=== PATIENT | male | born 1970 | race Caucasian/White ===

== ENCOUNTER 2019-03-23 17:29 | Emergency (ER) | payer MEDICAID, SELFPAY ==
[2019-03-23] VITALS (9 sets, daily range): BP systolic 133–161; BP diastolic 80–103; PULSE 109–115; RESP 14–37; TEMP 36.6; O2SAT 97–100
--- NOTE | 2019-03-23 17:35 | W.ED.GENAD ---
Discharge Plan Disposition Patient Disposition: HOME Condition: Improving Discharge Details Chief Complaint: OD/Poison Clinical Impression: Opiate overdose Primary Care Provider: Kait Ponce ED Provider: Julian Masterson Home Meds and New Rx's Prescriptions: Continued naloxone [Narcan] 4 MG spray,non-aerosol 4 mg NS DIRECTED Qty: 2 RF: 0 prednisone 20 MG tablet 40 mg PO HS Qty: 6 RF: 0 diphenhydramine HCl 50 MG capsule 50 mg PO Q6H PRN (Reason: Itching) Qty: 15 RF: 0 epinephrine [EpiPen 2-Chivo] 0.3 MG/0.3 ML auto-injector 0.3 mg IJ DIRECTED PRNQty: 1 RF: 0 ranitidine HCl [Zantac] 150 MG tablet 150 mg PO BID Qty: 6 RF: 0 Discharge Instructions Additional Instructions: Please continue your efforts to avoid illicit drug use. Continue your regular medications. Return for any acute concern. Medical Decision Making 48-year-old male states he has a history of substance abuse, was recently able to wean off of opiates and has been clean for some months. Today he states he bought some heroin, snorted it and that the last thing he remembers. EMS was called for overdose, patient received Narcan and was revived. He arrives improved and without complaint. Patient slightly tachycardic initially and given fluid bolus. He seen by a onsite health coach in the emergency department. Observed. He is improved. Stable for discharge to home. HPI General Mode of arrival: EMS. Date/Time Provider Initiated Documentation: 03/23/19 17:31. Limitations to Documentation: no limitations. Information obtained by: patient and EMS. History of Present Illness 48 year old M presents to the emergency department with the chief complaint of Opiate overdose, described as moderate, Patient started experiencing this minute(s) No relieving factors improve symptom(s), No exacerbating factors reported . Patient notes no other symptoms.; denies chest pain and shortness of breath. Patient did receive the following treatments prior to arrival, none Related Data Home Medications Medication Instructions Recorded Confirmed diphenhydramine HCl 50 mg PO Q6H PRN #15 cap 02/28/18 epinephrine [EpiPen 2-Chivo] 0.3 mg IJ DIRECTED PRN #1 02/28/18 auto.injct prednisone 40 mg PO HS #6 tab 02/28/18 ranitidine HCl [Zantac] 150 mg PO BID #6 tab 02/28/18 naloxone [Narcan] 4 mg NS DIRECTED #2 spray 06/09/18 Previous Rx's Medication Instructions Recorded diphenhydramine HCl 50 mg PO Q6H PRN #15 cap 02/28/18 epinephrine [EpiPen 2-Chivo] 0.3 mg IJ DIRECTED PRN #1 02/28/18 auto.injct prednisone 40 mg PO HS #6 tab 02/28/18 ranitidine HCl [Zantac] 150 mg PO BID #6 tab 02/28/18 naloxone [Narcan] 4 mg NS DIRECTED #2 spray 06/09/18 Allergies Allergy/AdvReac Type Severity Reaction Status Date / Time naproxen [From Aleve] Allergy Severe Swelling/Ed Verified 02/28/18 06:35 maryann Review of Systems Review of Systems Denies chest pain, palpitations, shortness of breath. No active depression. States that he feels embarrassed. 6 systems reviewed and otherwise neg [facility] Medical History Depression History of incarceration Substance abuse Tobacco use disorder Surgical History Left wrist fusion rgt thumb first [facility] joint injection (02/11/16) Family History Mother No problems noted. Father Diabetes Essential hypertension Personal history of malignant neoplasm Stroke Sister No problems noted. Brother No problems noted. Grandfather Substance abuse Social History Smoking/Tobacco Use Status: Current every day Alcohol Intake: current Alcohol Intake frequency: 3 or more drinks per day Drug use: Occasionally Substance use type: former substance user, marijuana and heroin Details: Patient had been sober until today, he was a former heroin user. He still smokes marijuana Exam Narrative Exam Narrative: GEN: awake, alert, oriented 3. Pleasant, well groomed, interactive. HEAD: Normocephalic, atraumatic ENT: Mucous membranes moist, oropharynx unremarkable, External ear exam unremarkable EYES: PERRL, EOMI NECK: Full ROM, no MILA, no menigismus CHEST/RESP: Nontender, clear to auscultation bilateral, no wheeze/rhonchi/rales CARDIOVASCULAR: RRR, no murmur, rub melonie. 2+ Rad pulse bilateral ABDOMEN: Soft, nontender, no mass. +Bowel sounds EXT: Full ROM, no edema, no rash Neuro: Grossly normal neurologic exam, conversant, interactive. Psych: Speech fluent, thoughts congruent, affect normal
--- NOTE | 2019-03-23 17:38 | ED.GENADUL_ITS ---
Discharge Plan Disposition Patient Disposition: HOME Condition: Improving Discharge Details Chief Complaint: OD/Poison Clinical Impression: Opiate overdose Primary Care Provider: Kait Ponce ED Provider: Julian Masterson Home Meds and New Rx's Prescriptions: Continued naloxone [Narcan] 4 MG spray,non-aerosol 4 mg NS DIRECTED Qty: 2 RF: 0 prednisone 20 MG tablet 40 mg PO HS Qty: 6 RF: 0 diphenhydramine HCl 50 MG capsule 50 mg PO Q6H PRN (Reason: Itching) Qty: 15 RF: 0 epinephrine [EpiPen 2-Chivo] 0.3 MG/0.3 ML auto-injector 0.3 mg IJ DIRECTED PRNQty: 1 RF: 0 ranitidine HCl [Zantac] 150 MG tablet 150 mg PO BID Qty: 6 RF: 0 Discharge Instructions Additional Instructions: Please continue your efforts to avoid illicit drug use. Continue your regular medications. Return for any acute concern. Medical Decision Making 48-year-old male states he has a history of substance abuse, was recently able to wean off of opiates and has been clean for some months. Today he states he bought some heroin, snorted it and that the last thing he remembers. EMS was called for overdose, patient received Narcan and was revived. He arrives improved and without complaint. Patient slightly tachycardic initially and given fluid bolus. He seen by a recovery rn in the emergency department. Observed. He is improved. Stable for discharge to home. HPI General Mode of arrival: EMS . Date/Time Provider Initiated Documentation: 03/23/19 17:31 . Limitations to Documentation: no limitations . Information obtained by: patient and EMS . History of Present Illness 48 year old M presents to the emergency department with the chief complaint of Opiate overdose, described as moderate, Patient started experiencing this minute(s) No relieving factors improve symptom(s), No exacerbating factors reported . Patient notes no other symptoms.; denies chest pain and shortness of breath. Patient did receive the following treatments prior to arrival, none Related Data Home Medications Medication Instructions Recorded Confirmed diphenhydramine HCl 50 mg PO Q6H PRN #15 cap 02/28/18 epinephrine [EpiPen 2-Chivo] 0.3 mg IJ DIRECTED PRN #1 02/28/18 auto.injct prednisone 40 mg PO HS #6 tab 02/28/18 ranitidine HCl [Zantac] 150 mg PO BID #6 tab 02/28/18 naloxone [Narcan] 4 mg NS DIRECTED #2 spray 06/09/18 Previous Rx's Medication Instructions Recorded diphenhydramine HCl 50 mg PO Q6H PRN #15 cap 02/28/18 epinephrine [EpiPen 2-Chivo] 0.3 mg IJ DIRECTED PRN #1 02/28/18 auto.injct prednisone 40 mg PO HS #6 tab 02/28/18 ranitidine HCl [Zantac] 150 mg PO BID #6 tab 02/28/18 naloxone [Narcan] 4 mg NS DIRECTED #2 spray 06/09/18 Allergies Allergy/AdvReac Type Severity Reaction Status Date / Time naproxen [From Aleve] Allergy Severe Swelling/Ed Verified 02/28/18 06:35 maryann Review of Systems Review of Systems Denies chest pain, palpitations, shortness of breath. No active depression. States that he feels embarrassed. 6 systems reviewed and otherwise neg [facility] Medical History Depression History of incarceration Substance abuse Tobacco use disorder Surgical History Left wrist fusion rgt thumb first [facility] joint injection (02/11/16) Family History Mother No problems noted. Father Diabetes Essential hypertension Personal history of malignant neoplasm Stroke Sister No problems noted. Brother No problems noted. Grandfather Substance abuse Social History Smoking/Tobacco Use Status: Current every day Alcohol Intake: current Alcohol Intake frequency: 3 or more drinks per day Drug use: Occasionally Substance use type: former substance user, marijuana and heroin Details: Patient had been sober until today, he was a former heroin user. He still smokes marijuana Exam Narrative Exam Narrative: GEN: awake, alert, oriented 3. Pleasant, well groomed, interactive. HEAD: Normocephalic, atraumatic ENT: Mucous membranes moist, oropharynx unremarkable, External ear exam unremarkable EYES: PERRL, EOMI NECK: Full ROM, no MILA, no menigismus CHEST/RESP: Nontender, clear to auscultation bilateral, no wheeze/rhonchi/rales CARDIOVASCULAR: RRR, no murmur, rub melonie. 2+ Rad pulse bilateral ABDOMEN: Soft, nontender, no mass. +Bowel sounds EXT: Full ROM, no edema, no rash Neuro: Grossly normal neurologic exam, conversant, interactive. Psych: Speech fluent, thoughts congruent, affect normal
[2019-03-23] MEDS: Normal Saline 1,000 ML 1000 ML IV (17:41)
== END 2019-03-23 18:10 | disposition home or self-care (01) ==
LOC: ER 18:14
PROVIDERS: Emergency Provider Emergency Medicine; PCP Nurse Practitioner Family
DX: T40.1X1A Poisoning by heroin, accidental (unintentional), initial encounter (principal); F11.10 Opioid abuse, uncomplicated; R00.0 Tachycardia, unspecified
CPT/HCPCS: 96360; 99283

== ENCOUNTER 2021-01-09 01:58 | Outpatient (CLI) | payer MEDICAID, SELFPAY ==
[2021-01-09 16:43] LABS: Abs Immature Grans 0.08 10^3/uL (0.0-0.06); Absolute Eosinophil Count 0.01 10^3/uL (0.0-0.7); Absolute Lymphocyte Count 2.79 10^3/uL (1.2-3.4); Absolute Monocyte Count 0.85 10^3/uL (0.1-0.8); Absolute Neutrophil Count 10.83 10^3/uL (1.2-6.7); Basophils % 0.7; Eosinophils % 0.1; HCT 43.8 % (40.0-50.0); HGB 14.1 g/dL (13.5-17.5); Immature Grans % 0.5; MCH 28.4 pg (27.0-33.0); MCHC 32.2 % (32.0-36.0); MCV 88.3 fL (80-95); MPV 9.7 fL (8.0-11.0); Monocytes % 5.8; Neutrophils % 73.9; Nucleated RBC 0 %; Platelet Count 369 10^3/uL (130-400); RBC 4.96 10^6/uL (4.36-5.78); RDW 14.1 % (11.8-14.1); RDW-SD 45.6 fL; WBC 14.66 10^3/uL (4.4-10.8)
[2021-01-09 17:43] LABS: ALT 30 U/L (16-63); AST 13 U/L (15-37); Albumin 3.4 g/dL (3.4-5.0); Alkaline Phosphatase 116 U/L (46-116); Anion Gap 9.5 mmol/L (3-11); BUN 16 mg/dL (7-18); Bilirubin, Total 0.2 mg/dL (0.2-1.0); CO2 27.5 mmol/L (21.0-32.0); CREATININE 0.8 mg/dL (0.70-1.30); Calcium 9.2 mg/dL (8.5-10.1); Chloride 103 mmol/L (98-107); Glucose 108 mg/dL (74-106); Sodium 140 mmol/L (136-145); Total Protein 7.4 g/dL (6.4-8.2)
[2021-01-09 17:52] LABS: GGT 65 U/L (15-85)
[2021-01-12 10:47] LABS: HBs Antibody, Quant <3.1 mIU/mL (See Note); Hepatitis B Surface Ab Negative (See Note)
[2021-01-12 10:59] LABS: Hepatitis B Surface Ag Negative (Negative)
[2021-01-12 11:32] LABS: Hepatitis C Ab w Rflx HCV PCR Negative (Negative)
[2021-01-12 11:38] LABS: HIV-1/2 Ag & Ab Screen Negative (Negative)
[2021-01-12 11:43] LABS: Hep A Total Ab w Rflx IgM Negative (Negative)
[2021-01-14 05:48] LABS: HCV Genotype Undetected (Undetected)
== END 2021-01-09 01:59 | disposition home or self-care (01) ==
LOC: LBO 01:58
PROVIDERS: PCP Nurse Practitioner Family; Visit Provider Nurse Practitioner Adult Health
DX: F11.20 Opioid dependence, uncomplicated (principal); Z11.59 Encounter for screening for other viral diseases; Z11.4 Encounter for screening for human immunodeficiency virus [HIV]
CPT/HCPCS: 36415; 80053; 86706; 86709; 86803; 87340; 87389; 82977; 85025; 86704; 87521

== ENCOUNTER 2021-05-27 01:58 | Outpatient (CLI) | payer OTHER, SELFPAY ==
--- NOTE | 2021-05-27 | DI.RAD_ITS ---
Exam(s) XR LUMBAR SPINE AP, LAT EXAM: XR LUMBAR SPINE AP, LAT CLINICAL HISTORY: DISABILITY DETERMINATION,BACK PAIN. TECHNIQUE: 2D digital imaging was performed. COMPARISON: No exams were available for comparison FINDINGS: Vertebral bodies are well maintained in height. There are endplate osteophytes greatest in the lower thoracic spine and at the L1-2 level. There is mild narrowing of the L1-2 disc space. Endplate ost eophytes are also seen at L5-S1. There are small endplate osteophytes at this level. There are face t degenerative changes greatest at L5-S1. The alignment appears normal. No spondylolysis or spondyl olisthesis is seen. SI joints are unremarkable. IMPRESSION: Degenerative changes, greatest at L 5 S1. DATA REPOSITORY: RADIATION DOSE DELIVERED:
--- NOTE | 2021-05-27 09:38 | DI.RAD_ITS ---
Exam(s) XR WRIST LT LIMITED EXAM: XR WRIST LT LIMITED CLINICAL HISTORY: DISABILITY DETERMINATION,WRIST PAIN,UNABLE TO TUB RIDER. TECHNIQUE: 2D digital imaging was performed. COMPARISON: CR RIGHT WRIST COMPLETE from 11/25/2015 FINDINGS: There has been a previous carpal fusion with a dorsal fixation plate spanning the 3rd metacarpal thro ugh the radius. The most proximal screw in the 3rd metacarpal is fractured. The remaining screws ap pear intact. There is no abnormal surrounding bony lucency. There are advanced degenerative changes at the 1st carpal carpal metacarpal joint. There is joint space narrowing, periarticular spurring and subchondral cyst formation. IMPRESSION: Carpal fusion. Advanced degenerative changes at the 1st carpal metacarpal joint. DATA REPOSITORY: RADIATION DOSE DELIVERED:
--- NOTE | 2021-05-27 09:38 | DI.RAD_ITS ---
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 TECHNIQUE: 2D digital imaging was performed. COMPARISON: No exams were available for comparison FINDINGS: There is no evidence an acute fracture. There are severe degenerative changes at the 1st carpal meta carpal joint. There is obliteration of the joint space and prominent periarticular spurring. There is subchondral cyst formation and sclerosis. There is some deformity at the base of the 1st metacarp al. There is some lateral subluxation. The second carpometacarpal joint is not well profiled. The intercarpal alignment is normal and shows minimal degenerative change. The radiocarpal joint appears intact. [id number] degenerative changes are also visible at the interphalangeal joint of the thumb and 3rd metacarpophalangeal joint. There is mild deformity of the 5th metacarpal, consistent w ith an old fracture. 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 DATA REPOSITORY: RADIATION DOSE DELIVERED:
--- NOTE | 2021-05-27 09:38 | DI.RAD_ITS ---
Exam(s) XR SHOULDER LT COMPLETE 2+V EXAM: XR SHOULDER LT COMPLETE 2+V CLINICAL HISTORY: DISABILITY DETERMINATION, SHOULDER PAIN. TECHNIQUE: 2D digital imaging was performed. COMPARISON: No exams were available for comparison FINDINGS: BONES: No acute fracture is present. No bony destructive lesion is seen. Degenerative subchondral cy sts are seen near the greater tuberosity. JOINTS: No dislocation present. Glenohumeral joint space is well maintained. There is mild spurring at the glenoid. There is moderate spurring at the acromioclavicular joint. No tendon or joint spac e calcifications are seen. SOFT TISSUE: Normal. IMPRESSION: Degenerative changes of the AC joint and glenohumeral joint.. DATA REPOSITORY: RADIATION DOSE DELIVERED:
--- NOTE | 2021-05-27 09:38 | DI.RAD_ITS ---
Exam(s) XR KNEE LT 2V AP,LAT EXAM: XR KNEE LT 2V AP,LAT CLINICAL HISTORY: DISABILITY DETERMINATION,LT KNEE PAIN. TECHNIQUE: 2D digital imaging was performed. COMPARISON: No exams were available for comparison FINDINGS: BONES: No acute fracture is present. No bony destructive lesion is seen. JOINTS: There is severe narrowing of the medial femoral tibial joint space. There is periarticular s clerosis and mild periarticular spurring. There is minimal spurring at the articular aspect of the p atella. No joint effusion is seen. SOFT TISSUE: Normal. IMPRESSION: Advanced degenerative changes of the medial femoral tibial joint. DATA REPOSITORY: RADIATION DOSE DELIVERED:
== END 2021-05-27 02:18 ==
PROVIDERS: PCP Family Medicine; Visit Provider Pediatrics Pediatric Rheumatology
DX: Z02.71 Encounter for disability determination (principal); M18.12 Unilateral primary osteoarthritis of first carpometacarpal joint, left hand; M24.632 Ankylosis, left wrist; M19.012 Primary osteoarthritis, left shoulder; M17.12 Unilateral primary osteoarthritis, left knee; M47.817 Spondylosis without myelopathy or radiculopathy, lumbosacral region; M18.11 Unilateral primary osteoarthritis of first carpometacarpal joint, right hand
CPT/HCPCS: 72100; 73030; 73100; 73560

== ENCOUNTER 2021-06-17 03:39 | Outpatient (CLI) | payer MEDICAID, SELFPAY ==
[2021-06-17 08:38] LABS: Absolute Basophil Count 0.09 10^3/uL (0.0-0.2); Absolute Lymphocyte Count 2.86 10^3/uL (1.2-3.4); Absolute Neutrophil Count 9.62 10^3/uL (1.2-6.7); Basophils % 0.7; HCT 40.1 % (40.0-50.0); HGB 12.6 g/dL (13.5-17.5); Immature Grans % 0.7; Lymphocytes % 21.1; MCH 26.6 pg (27.0-33.0); MCHC 31.4 % (32.0-36.0); MCV 84.6 fL (80-95); MPV 9.6 fL (8.0-11.0); Monocytes % 6.6; Neutrophils % 70.9; Nucleated RBC 0 %; Platelet Count 325 10^3/uL (130-400); RBC 4.74 10^6/uL (4.36-5.78); RDW 15.3 % (11.8-14.1); WBC 13.57 10^3/uL (4.4-10.8)
[2021-06-17 09:42] LABS: ALT 30 U/L (16-63); AST 18 U/L (15-37); Albumin 3.5 g/dL (3.4-5.0); Alkaline Phosphatase 108 U/L (46-116); Anion Gap 10.3 mmol/L (3-11); BUN 15 mg/dL (7-18); Bilirubin, Total 0.3 mg/dL (0.2-1.0); CO2 27.7 mmol/L (21.0-32.0); CREATININE 0.9 mg/dL (0.70-1.30); Calcium 9.2 mg/dL (8.5-10.1); Calculated LDL 117 mg/dL (<100); Chloride 103 mmol/L (98-107); Cholesterol 218 mg/dL (<200); Glucose 109 mg/dL (74-106); HDL Cholesterol 22 mg/dL (40-60); Sodium 141 mmol/L (136-145); Total Protein 7.4 g/dL (6.4-8.2); Triglyceride 399 mg/dL (<150)
== END 2021-06-17 03:40 | disposition home or self-care (01) ==
LOC: LBO 03:40
PROVIDERS: PCP Family Medicine; Visit Provider Nurse Practitioner
DX: D72.9 Disorder of white blood cells, unspecified (principal); I10 Essential (primary) hypertension; E78.5 Hyperlipidemia, unspecified
CPT/HCPCS: 36415; 80053; 80061; 85025

== ENCOUNTER 2021-07-29 01:42 | Outpatient (CLI) | payer MEDICAID, SELFPAY ==
--- NOTE | 2021-07-29 07:30 | DI.US_ITS ---
APPROVED REPORT EXAM: Comprehensive 2D, Doppler, and color-flow Echocardiogram Patient Location: Out-Patient [employer] As[employer]er: Ester Ordoñez RDCS (AE) Indications: Edema, WU, Evaluate for CHF Other Information Study Quality: Adequate Conclusion Normal left ventricular wall thickness and chamber size. Estimated ejection fraction is 60 to 65%. Wall motion is normal Normal right ventricular size and systolic function Both atria are normal in size There is no significant valvular disease Estimated right ventricular systolic pressure is normal at 26 mmHg Rhythm throughout appeared to be sinus tachycardia, rate 115 to 120/min Wall motion Left Ventricle The left ventricle is normal size. The left ventricular systolic function is normal. The left ventric ular ejection fraction is within the normal range. There is normal left ventricular wall thickness. T here is normal LV segmental wall motion. There is no ventricular septal defect visualized. LVEF is 60 -65%. Right Ventricle The right ventricle is normal size. The right ventricular systolic function is normal. The RVSP is 25 .6mmHg. Atria The left atrium size is normal. The right atrium size is normal. The interatrial septum is intact wit h no evidence for an atrial septal defect. Aortic Valve The aortic valve is normal in structure. Aortic valve is trileaflet. There is no aortic valvular sten osis. No aortic regurgitation is present. Mitral Valve The mitral valve is normal in structure. No evidence of mitral valve stenosis. Trace mitral regurgita tion. Tricuspid Valve The tricuspid valve is normal in structure. There is no tricuspid valve stenosis. Trace tricuspid reg urgitation. Pulmonic Valve The pulmonary valve is normal in structure. There is no pulmonic valvular stenosis. There is no pulmo sy valvular regurgitation. Great Vessels The aortic root is normal in size. The ascending aorta is normal in size. Aortic arch is normal in ca liber. IVC is normal in size and collapses >50% with inspiration. Pericardium There is no pericardial effusion. 2D Dimensions IVSD d PLAX 1.14 cm M: 0.6-1.2 LV Vol A2C d MOD 88.2 mL LVPW d PLAX 1.12 cm M: 0.6 - 1.2 LV Vol A4C d MOD 110.8 mL LVID d PLAX 4.96 cm M: 4.2 - 5.8 LA Area A4C s MOD 18.73 cm2 LVDs 3.40 cm M: 2.5 - 4.0 LA Area A2C s MOD 18.77 cm2 Ao Root d 3.37 cm M: 3.1 - 3.7 LV EF A4C MOD 58.2 % RA Area A4C 11.56 cm2 LV EF A2C MOD 58.4 % Ao Asc Diam d 3.16 cm M: 2.6 - 3.4 LV EF Biplane MOD 57.1 % LV EF Teichholz 59.2 % SV 58.55 mL LVEF (Finley's) 57.10 % M: 52 - 72 LV Volume 102.55 mL M: 62 - 150 LV Volume Index 50.76 mL/m2 M: 34 - 74 LV Vol Biplane MOD 102.5 mL FS 31.45 % M-Mode TAPSE 2.33 cm (M/F) >1.7 LV Diastology MV E' medial 0.053 (>0.07 m/s) MV E Vmax 1.20 (0.4-1.3 m/s) LV E/e MED 22.65 (<14) MV E' lateral 0.084 (>0.1 m/s) LV E/e LAT 14.20 (<14) MV E/E' medial 22.69 MV E/E' lateral 14.24 Aortic Valve LVOT Area 2.90 cm2 AoV Area Vmax 2.50 cm2 LVOT Vmax 1.06 m/s LEO Mean Devin. 2.13 cm2 LVOT Mean Devin. 0.65 m/s LVOT Peak Grad 4.5 mmHg LVOT Mean Grad 2.1 mmHg LVOT VTI 0.179 m LVOT Diam s 1.90 cm AoV Vmax 1.23 m/s Velocity Ratio 0.86 AoV Mean Devin. 0.89 m/s AoV Peak Grad 6.0 mmHg LVOT SV 51.79 mL AoV Mean Grad 3.6 mmHg AoV VTI 0.191 m AoV Area VTI 2.72 cm2 Mitral Valve MV DT 143 (160-240 msec) MV PHT 41 msec MV Area PHT 5.30 cm2 MV VTI 0.291 m MV Area VTI 1.78 (4.0-6.0 cm2) Pulmonary Valve PV Vmax 1.23 (0.5-1.5 m/s) RVOT Peak Gr. 3.33 mmHg PV Peak Grad 6.0 mmHg RVOT Mean Gr. 1.65 mmHg PV Mean Grad 3.1 mmHg RVOT VTI 0.159 m PV VTI 0.185 m RVOT Vmax 0.91 m/s Tricuspid Valve TR Peak Grad 22.6 mmHg TR Vmax 2.38 m/s RA Pressure 3.00 mmHg RVSP (TR) 25.6 mmHg
== END 2021-07-29 02:02 ==
PROVIDERS: PCP Nurse Practitioner Adult Health; Visit Provider Family Medicine
DX: R60.0 Localized edema (principal); R06.09 Other forms of dyspnea
CPT/HCPCS: 93306

== ENCOUNTER 2021-10-29 01:40 | Outpatient (CLI) | payer MEDICAID, SELFPAY ==
--- NOTE | 2021-10-29 07:13 | DI.US_ITS ---
Exam(s) US EXTREMITY VENOUS BI EXAM: US EXTREMITY VENOUS BI CLINICAL HISTORY: r/o acute DVT prior to compression other tx's,EDEMA,R60.0,PVD TECHNIQUE: Grayscale, color, and doppler imaging of the deep venous system of both lower extremities was performed. COMPARISON: US US ECHOCARDIOGRAM from 07/29/2021 FINDINGS: There is no evidence of intraluminal thrombus and there is normal compression and augmentation demons trated within the common femoral veins, femoral veins, and popliteal veins of both lower extremities. In the calves the interrogated veins also exhibit normal compression/ augmentation properties. The greater saphenous veins also appear patent as do the saphenofemoral junctions bilaterally.. IMPRESSION: 1. No ultrasound evidence of DVT in either lower extremity. DATA REPOSITORY:
== END 2021-10-29 02:00 ==
PROVIDERS: PCP Nurse Practitioner Adult Health; Visit Provider Nurse Practitioner Adult Health
DX: R60.0 Localized edema (principal); I87.2 Venous insufficiency (chronic) (peripheral); I73.89 Other specified peripheral vascular diseases
CPT/HCPCS: 93970

== ENCOUNTER 2021-12-07 15:09 | Outpatient (REF) | payer MEDICAID, SELFPAY ==
[2021-12-07 19:17] LABS: ALT 22 U/L (16-63); AST 13 U/L (15-37); Albumin 3.5 g/dL (3.4-5.0); Alkaline Phosphatase 99 U/L (46-116); Anion Gap 10.2 mmol/L (3-11); BUN 14 mg/dL (7-18); Bilirubin, Total 0.2 mg/dL (0.2-1.0); CO2 25.8 mmol/L (21.0-32.0); Calcium 8.7 mg/dL (8.5-10.1); Calculated LDL 105 mg/dL (<100); Chloride 100 mmol/L (98-107); Cholesterol 158 mg/dL (<200); Glucose 103 mg/dL (74-106); HDL Cholesterol 24 mg/dL (40-60); Potassium 4.7 mmol/L (3.5-5.1); Sodium 136 mmol/L (136-145); Total Protein 7.4 g/dL (6.4-8.2); Triglyceride 149 mg/dL (<150)
== END 2021-12-07 15:10 | disposition home or self-care (01) ==
LOC: LBN 15:09
PROVIDERS: PCP Nurse Practitioner Adult Health; Visit Provider Nurse Practitioner Adult Health
DX: E78.5 Hyperlipidemia, unspecified (principal); I10 Essential (primary) hypertension
CPT/HCPCS: 80053; 80061

== ENCOUNTER 2022-05-11 18:26 | Emergency (ER) | payer MEDICAID, SELFPAY ==
[2022-05-11 18:26] VITALS: PULSE 0; RESP 0; O2SAT 41
--- NOTE | 2022-05-11 18:50 | ED.GENADUL_ITS ---
Discharge Plan Disposition Patient Disposition: Discharge Details Clinical Impression: Cardiopulmonary arrest Primary Care Provider: Ambika Armstrong ED Provider: Neelima Sandoval Discharge Data Date/Time: 05/11/22 19:12 Discharge Date/Time-TO BE ENTERED AT DEPARTURE: 05/11/22 20:19 Medical Decision Making 1822 -- 51-year-old male with a history of morbid obesity, hypertension, hyperlipidemia, diabetes, sleep apnea and polysubstance abuse presents as a reported overdose and CPR in progress by family on scene. CPR continued on scene by EMS, given multiple rounds of epi, 1 dose of amiodarone and 2 shocks for V. fib with return of spontaneous circulation and arrived to the ED with CPR in progress. Please see EMS code sheet for details. EMS reported unable to intubate with ET tube due to reported poor visualization but able to place an I-gel. On arrival to the ED, equal breath sounds with mechanically assisted breaths. Patient unresponsive with fixed and dilated pupils. Patient given multiple rounds of epi with PEA and no shockable rhythm. Able to briefly obtain ROSC at which time pt was intubated with 7.5 ETT. Pt then became pulseless and asystole on monitor. Please see ED code sheet for details. Bedside ultrasound revealed no cardiac wall motion. Time of called at 1845. 1920 -- patient's [id number] Chela Lim in waiting room. She states she was told by her family that patient was before his arrival to the ED. She states that patient posted on social media today that he was living the sober life . She states he does have a history of substance abuse issues but his family was concerned about possible overdose. facility examiner here as pt is a reported overdose. Medical Records Medical records reviewed: Yes I reviewed the patient's medical records. HPI General Date/Time Provider Initiated Documentation: 05/11/22 18:33 . Limitations to Documentation: altered mental status . Information obtained by: EMS . HPI Narrative: Patient is a 51-year-old male with a history of morbid obesity, hypertension, hyperlipidemia, diabetes, sleep apnea, polysubstance abuse who presented to the ED initially as report of an overdose and arrived with CPR in progress. EMS reported girlfriend found patient down for approximately 18 minutes. Family members on scene started CPR. On arrival of EMS, CPR continued and given multip le epi with PEA on the monitor. Patient was also noted to be in V. fib and given 2 shocks. He had return of spontaneous circulation on scene but pulseless on arrival to the ED. Related Data Home Medications Medication Instructions Recorded Confirmed acetaminophen 500 mg capsule 2,000 mg PO PRN 02/24/21 04/07/22 atorvastatin 10 mg tablet 10 mg PO QHS #90 tabs 07/27/21 04/07/22 buprenorphine 12 mg-naloxone 3 mg See Rx Instructions buccal Q24H 07/27/21 04/07/22 sublingual film (Suboxone) omeprazole 40 mg capsule,delayed 40 mg PO DAILY #90 caps 07/27/21 04/07/22 release ibuprofen 200 mg tablet (Advil) 600 - 800 mg PO BID PRN pain #180 07/28/21 04/07/22 tabs compress.stocking,knee,reg,lrg #2 ea 12/08/21 04/07/22 sildenafil 50 mg tablet 50 mg PO DAILY PRN sexual activity 02/04/22 04/07/22 #20 tabs lisinopril 20 mg tablet 20 mg PO DAILY #90 tabs 04/07/22 04/07/22 Previous Rx's Medication Instructions Recorded atorvastatin 10 mg tablet 10 mg PO QHS #90 tabs 07/27/21 omeprazole 40 mg capsule,delayed 40 mg PO DAILY #90 caps 07/27/21 release ibuprofen 200 mg tablet (Advil) 600 - 800 mg PO BID PRN pain #180 07/28/21 tabs compress.stocking,knee,reg,lrg #2 ea 12/08/21 sildenafil 50 mg tablet 50 mg PO DAILY PRN sexual activity 02/04/22 #20 tabs lisinopril 20 mg tablet 20 mg PO DAILY #90 tabs 04/07/22 Allergies Allergy/AdvReac Type Severity Reaction Status Date / Time naproxen [From Aleve] Allergy Severe Swelling/Ed Verified 05/11/22 18:58 maryann General Stated Complaint: [employer] ALLIE: 1 Review of Systems Unobtainable due to mental status PFSH All Active Problems (Updated 05/11/22 @ 20:00 by Neelima Sandoval DO) Cardiopulmonary arrest (Acute) Venous insufficiency of both lower extremities (Chronic ~2020) Normal ABIs (10/2021); H/O venous stasis dermatitis & wounds (responsive to [facility]) Erectile dysfunction (Acute) Cocaine use (Acute) Chronic heartburn (Chronic) PPI RX Nicotine use disorder (Chronic) Medical History (Updated 05/11/22 @ 20:00 by Neelima Sandoval DO) Depression Was depressed while he was in [facility] [id number] Diabetes Essential hypertension (10/20/15) History of incarceration [id number] Hyperlipidemia, unspecified (10/08/15) 10/2015 labs: 10-year ASCVD risk = ~18% --> initiated statin therapy, resumed 2020 Lower extremity edema Normal ABIs 10/2021 [facility] (see scanned) Polyarthritis SSDI Severe obstructive sleep apnea (08/16/21) with significant nocturnal hypoxemia 10/15/21 [facility] - Cpap ordered with f/u 02/2022 Substance abuse Alcohol, cocaine Substance use disorder Suboxone (outside provider); cont with intermittent EtOH & cocaine (09/2021) Venous stasis dermatitis of both lower extremities Surgical History Left wrist fusion Dr. Dennison ~2004 rgt thumb first [facility] joint injection (02/11/16) Family History Mother No problems noted. Father Diabetes Essential hypertension Personal history of malignant neoplasm Prostate CA dx'ed ~49 years old Stroke Sister No problems noted. Brother No problems noted. Grandfather Substance abuse EtOH Social History Smoking/Tobacco Use Status: Current every day Tobacco: How many years used: 40 Smoking risk assessment performed?: Yes Alcohol Intake: current Alcohol Intake frequency: a few times a week Counseling given: Yes Drug use: Occasionally Substance use type: former substance user Date of last use: opioids, marijuana and crack/cocaine Counseling given: Yes Counseling provided: provider counseling Details: 09/30/21--counselled chronic health conditions will persist & worsen with cocaine & EtOH use Adopted: No Caregiver/Support person: No Foster care: No Household members: none Housing: apartment Do you need help understanding health information?: Rarely current occupation: unemployed Sexually active: Yes Do you think of yourself as: straight/heterosexual Current gender identity: male What is your relationship status?: living with partner Panel score (0-1 are the most socially isolated patients): 1 What type of physical activity do you participate in: none Working smoke detector in home: Yes Fire extinguisher in home: Yes Exam Const General: patient mechanically ventilated Nutritional Appearance: obese morbidly obese [facility] Head: normal to inspection Ears: external ears normal General nose exam: external nose normal Face and sinus: normal facial exam Eyes Pupils: dilated bilaterally and fixed bilaterally Neck Neck: normal visual inspection Chest Chest: normal inspection of the chest Resp Auscultation: other (equal breath sounds with bagging) Cardio Rate: bradycardic GI Inspection: obesity Neuro General: other (unresponsive) Extrem General: normal to inspection Psych Appearance: disheveled Procedures Intubation Time out performed: Yes sedative: none Laryngoscope: Leo ET Tube Size: 7.5 ET Tube Uncuffed: No Tube Secured Depth (cm): 25 Tube Secured Location: lips Tube Placement Confirmation: visualized tube passing through cords and equal breath sounds bilaterally Patient Tolerated Procedure: no complications Critical Care Time Critical Care Time Critical Care Time: Yes Total Critical Care Time: 25 Attestation: I spent 25 minutes of critical care time with this patient. This does not include time spent on separately reported billable procedures.
[2022-05-11 18:58] LABS: Abs Immature Grans 1.55 10^3/uL (0.0-0.06); HCT 40.9 % (40.0-50.0); HGB 10.8 g/dL (13.5-17.5); MCHC 26.4 % (32.0-36.0); MCV 85 fL (80-95); MPV 10.4 fL (8.0-11.0); Platelet Count 299 10^3/uL (130-400); RBC 4.83 10^6/uL (4.36-5.78); RDW 19.9 % (11.8-14.1); RDW-SD 61.1 fL; WBC 17.86 10^3/uL (4.4-10.8)
--- NOTE | 2022-05-11 18:59 | NUR.NOTE ---
Arrived via EMS, in room 1827, CPR resumed EPI admin 1830 Bicarb admin 1832 EPI admin 1834 Pulse noted 1835, CPR resumed Intubation Dr Sandoval 1835, 7.5 ET tube 25 at the lip 1837 No pulse noted, CPR resumed EPI admin 1838 Calcium 1g admin 1842 CPR resumed, no pulse noted 1844, time of called by MD Sandoval
[2022-05-11 19:13] LABS: Albumin 2.9 g/dL (3.4-5.0); Alkaline Phosphatase 128 U/L (46-116); Anion Gap 27.4 mmol/L (3-11); BUN 21 mg/dL (7-18); Bilirubin, Total 0.2 mg/dL (0.2-1.0); CO2 11.6 mmol/L (21.0-32.0); CREATININE 2.4 mg/dL (0.70-1.30); Calcium 9.4 mg/dL (8.5-10.1); Chloride 101 mmol/L (98-107); Estimated GFR 28.57 (mL/min/1.73m2); Magnesium 3.6 mg/dL (1.8-2.4); Sodium 140 mmol/L (136-145); Total Protein 6.3 g/dL (6.4-8.2); Troponin I < 50 ng/L (<or=60)
[2022-05-11 19:18] LABS: Glucose 553 mg/dL (74-106)
[2022-05-11 19:24] LABS: MCH 22.4 pg (27.0-33.0)
[2022-05-11 19:36] LABS: Absolute Lymphocyte Count 10.89 10^3/uL (1.2-3.4); Absolute Neutrophil Count 6.61 10^3/uL (1.2-6.7); Bands % 4
[2022-05-11 19:37] LABS: Absolute Basophil Count 0.18 10^3/uL (0.0-0.2); Absolute Eosinophil Count 0.36 10^3/uL (0.0-0.7); Absolute Monocyte Count 0.54 10^3/uL (0.1-0.8); Metamyelocytes % 3; Myelocytes % 1
[2022-05-11 19:38] LABS: Diff Comment Diff Reviewed
[2022-05-11 19:39] LABS: Anisocytosis 3+; Hypochromasia 3+
[2022-05-11 20:07] LABS: ALT 2293 U/L (16-63); AST 1711 U/L (15-37)
--- NOTE | 2022-05-12 05:45 | NUR.NOTE ---
Patient at 1911, taken to [facility] at [facility] at 2019Nursing Note:
== END 2022-05-11 20:19 | disposition expired ==
PROVIDERS: Physician Assistant; Emergency Provider Physician Assistant; PCP Nurse Practitioner Adult Health
DX: I46.9 Cardiac arrest, cause unspecified (principal)
CPT/HCPCS: 31500; 80053; 92950; 99285; 83735; 84484; 85025